=== PATIENT | female | born 1995 | race Caucasian/White ===

== ENCOUNTER 2016-06-10 16:42 | Emergency (ER) | payer MEDICAID ==
[~2016-06-10] VITALS: Ht 170.2 cm; Wt 86.9 kg
[2016-06-10 16:56] VITALS: BP 117/73
== END 2016-06-10 18:02 | disposition home or self-care (01) ==
LOC: ED 17:40
DX: K04.7 Periapical abscess without sinus (principal)
CPT/HCPCS: 41800; 99284